=== PATIENT | male | born 1945 | race Caucasian/White ===

== ENCOUNTER 2024-11-01 09:33 | Emergency (ER) | payer MEDICARE, OTHER, SELFPAY ==
[2024-11-01 09:36] VITALS: BP 153/81; PULSE 61; RESP 14; TEMP 36.5; O2SAT 98; BMI 26.7
--- NOTE | 2024-11-01 11:01 | ED_ITS ---
HPI - Wound/Laceration General Chief Complaint: Wound/Laceration Stated Complaint: right leg bleeding on thinners Time Seen by Provider: 11/01/24 09:39 Source: patient Mode of arrival: Ambulatory History of Present Illness HPI narrative: 79 years old male with history of AFib on Eliquis came in today complaining of cut on his right calf with a metal on the boat this morning. He said he was up-to-date in 2019. He denied any other injury. Related Data Allergies Allergy/AdvReac Type Severity Reaction Status Date / Time No Known Drug Allergies Allergy Verified 11/01/24 09:36 Review of Systems Review of Systems Narrative: Positive for 8 cm laceration right calf. Negative for any other injury, chest pain, shortness of breath, nausea vomiting, fever. Patient History Social History Smoking Status: Unknown if ever smoked Smoking Status: Unknown if ever smoked Exam Narrative Exam Narrative: GENERAL: Cooperative without acute distress. HEAD: Atraumatic. Normocephalic. CARDIOVASCULAR: Regular rate and rhythm without murmurs, gallops, or rubs. RESPIRATORY: Clear to auscultation. Breath sounds equal bilaterally. No wheezes, rales, or rhonchi. GASTROINTESTINAL: Abdomen soft, non-tender, nondistended. EXTREMITIES: No edema or joint tenderness. 8 cm laceration of the right calf. BACK: Nontender without deformity or crepitance. No flank tenderness. NEURO: AOx3. Initial Vital Signs Initial Vital Signs: Vital Signs Temperature 97.7 F 11/01/24 09:36 Pulse Rate 61 11/01/24 09:36 Respiratory Rate 14 11/01/24 09:36 Blood Pressure 153/81 H 11/01/24 09:36 Pulse Oximetry 98 11/01/24 09:36 Oxygen Delivery Method Room Air 11/01/24 09:36 Procedures Laceration Repair Laceration 1: Time of procedure: 11:20 Site: lower extremity (Right calf) Size (cm): 8 Local Anesthetic: lidocaine 1% (8 mL) Amount of anesthesia used (mL): 8 Skin layer closed with: nylon (4-0) Number of sutures: 4 Technique: simple, interrupted Course Vital Signs Vital signs: Vital Signs - 8 hr 11/01/24 09:36 Temperature 97.7 F Pulse Rate 61 Respiratory Rate 14 Blood Pressure 153/81 H Pulse Oximetry 98 Oxygen Delivery Method Room Air MDM - Wound/Laceration MDM Narrative Medical decision making narrative: 79 years old male came today complaining of laceration 8 cm right calf after caught on the metal on the both. His last tetanus was 2019. He was given 4 stitches and tolerated the procedure well. The distal skin flap of the wound was thin layer of the skin tear so he was put on sterile strip and cover with Xeroform. Before the suture he was having wound cleaning extensively. He will have suture removal next 2 weeks. The return to the ED precaution was given. Discharge Plan Departure Patient Disposition: Home Clinical Impression: Laceration of right calf Instructions: DI for Laceration Repair Activity Restrictions/Additional Instructions: Please have suture removal next 2 weeks. Please clean the wound dry. If develop any redness, drainage, fever, increasing swelling or pain please follow- up with your primary care doctor or urgent care. Stand Alone Forms: Patient Portal/API
[2024-11-01 12:05] VITALS: BP 150/56; PULSE 60; RESP 16; O2SAT 98
== END 2024-11-01 12:06 | disposition home or self-care (01) ==
PROVIDERS: Emergency Provider Emergency Medicine
DX: S81.811A Laceration without foreign body, right lower leg, initial encounter (principal); W45.8XXA Other foreign body or object entering through skin, initial encounter; Z79.01 Long term (current) use of anticoagulants
CPT/HCPCS: 12004; 99281; 99283